=== PATIENT | female | born 1955 | race Caucasian/White ===

== ENCOUNTER 2020-03-06 09:42 | Outpatient (NON) | payer MEDICARE, SELFPAY ==
[2020-03-06 10:21] LABS: Occult Blood Positive (Negative)
== END 2020-03-06 09:43 ==
PROVIDERS: Visit Provider Internal Medicine
DX: K92.1 Melena (principal)
CPT/HCPCS: 82272; 87045; 87046; 87427

== ENCOUNTER 2020-03-18 14:18 | Outpatient (NON) | payer MEDICARE, SELFPAY ==
[2020-03-18 14:43] LABS: Add Urine Microscopic? YES; Appearance Urine Cloudy (Clear); Bilirubin Urine Negative (Negative); Blood Urine 2+ (Negative); Color Urine Yellow (Yellow); Glucose Urine UA Negative (Negative); Ketones Urine Negative (Negative); Leukocyte Esterase Ur 3+ (Negative); Nitrate Urine Positive (Negative); Protein Urine Negative (Negative); Specific Grav Ur 1.025 (1.010-1.020); Urobilinogen Urine 0.2 mg/dL (0.2-1.0); pH Urine 5.5 (5.0-8.0)
[2020-03-18 14:55] LABS: Bacteria Urine 3+ /hpf; WBC Urine >75 /hpf (0-3)
== END 2020-03-18 14:19 ==
LOC: CHSLAB 14:22
PROVIDERS: Visit Provider Internal Medicine
DX: N39.0 Urinary tract infection, site not specified (principal)
CPT/HCPCS: 81001; 87077; 87086; 87088; 87186

== ENCOUNTER 2023-07-29 22:31 | Inpatient (IN) | payer MEDICARE, MEDICAID, SELFPAY ==
--- NOTE | ~2023-07-29 | CT_ITS ---
CT of the Abdomen and Pelvis: Indication: Vomiting Technique: 2.5 mm axial scans were obtained through the abdomen and pelvis following intravenous adm inistration of 100 cc of Omnipaque 350. Dose reduction technique was used on this scan by utilizing a utomated exposure control and iterative reconstruction technique. The dose-length product (DLP) was 1 017.74 mGy-cm. Findings: Scans through the lung bases are unremarkable. The liver, spleen, pancreas, gallbladder, adrenals and kidneys are within normal limits. No evidence of aortic aneurysm. No lymphadenopathy. No bowel obstruction or bowel wall thickening. There is no evidence to suggest acute appendicitis. Images through the pelvis were performed. Urinary bladder unremarkable. No pelvic mass evident. No as cites. Impression: No significant abnormalities seen. Reviewed, dictated and finalized at location . Impression: No significant abnormalities seen.
--- NOTE | ~2023-07-29 | XR_ITS ---
EXAMINATION: XR chest 1V portable Exam Date/Time: 07/30/2023 19:00 CDT HISTORY: vomiting Comparison: 06/08/2015, report only; CT abdomen pelvis 07/30/2023. RESULT: Lines, tubes, and devices: None. Lungs and pleura: Senescent change with bibasilar atelectasis/scar. Cardiomediastinal silhouette: Stable. Other: No acute osseous or upper abdominal finding. IMPRESSION: No acute cardiopulmonary process. Reviewed, dictated and finalized at location K.
[2023-07-29 22:32] VITALS: BP 102/56; PULSE 84; RESP 12; TEMP 36.4; O2SAT 96
--- NOTE | 2023-07-30 00:05 | ED.NAVMDI ---
HPI - Nausea/Vomiting/Diarrhea General Chief complaint: Nausea/Vomiting/Diarrhea Stated complaint: vomiting Time Seen by Provider: 07/29/23 23:43 Source: patient Mode of arrival: ambulatory Limitations: no limitations History of Present Illness HPI Narrative: This is a 68-year-old female who presents to the ED via EMS from [facility] for for chief complaint of vomiting. Per EMS report the patient has had intermittent vomiting episodes for the last 3 weeks seems to be worse after eating. 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 Patient is also contracted at baseline. No change in her baseline activity level. Spoke with family on phone who was unable to be present. He is her brother and POA. He would like for us to check labs and urinalysis. Related Data Allergies Allergy/AdvReac Type Severity Reaction Status Date / Time No Known Allergies Allergy Verified 07/29/23 23:07 Review of Systems Review of Systems: All systems as dictated in HPI Exam Narrative: GENERAL: Well-appearing, well-nourished, and in no acute distress. HEAD: Normocephalic, atraumatic. EYES: PERRLA. Sunken eyelids ENT: Nares clear, no rhinorrhea or epistaxis. Mucous membranes moist. Oropharynx without tonsillar hypertrophy exudate or other lesions. NECK: Supple. No adenopathy or masses. CHEST: No respiratory distress. Clear to auscultation. No wheezes rales or rhonchi HEART: Regular rate and rhythm. No murmur heard. Normal peripheral pulses. ABDOMEN: Soft, nontender, nondistended, normal active bowel sounds. MSK: Extremities contracted. No edema. SKIN: Warm, dry, no rash. Diffuse minor scratches and two minor bruise noted to the extremities. NEURO: Unable to assess neuro exam. She does move extremities spontaneously. Responds to pain. PSYCH: Normal mood and affect. Course Vital Signs Vital signs: Vital Signs Temperature 97.6 F 07/29/23 22:32 Pulse Rate 84 07/29/23 22:32 Respiratory Rate 12 07/29/23 22:32 Blood Pressure 102/56 L 07/29/23 22:32 Pulse Oximetry 96 07/29/23 22:32 Oxygen Delivery Room Air 07/29/23 22:32 Temperature 97.6 F 07/29/23 22:32 Pulse Rate 94 07/30/23 02:23 Respiratory Rate 18 07/30/23 02:23 Blood Pressure 116/66 07/30/23 02:23 Pulse Oximetry 98 07/30/23 02:23 Oxygen Delivery Room Air 07/29/23 22:32 MDM - Nausea/Vomiting/Diarrhea MDM Narrative Medical decision making narrative: This is a 68-year-old female who presents to the ED via EMS from [facility]-way for chief complaint of intermittent vomiting for the past 3 weeks. Patient is deaf, blind and mute at baseline. Discussed with the family member goals of care and they would like her checked with lab work and urinalysis. Lab work overall is fairly unremarkable. Slightly elevated bicarb on the CMP but otherwise normal CMP. Urinalysis initial draw shows grossly overtly purulent need urine. UA results show nitrite positive, 3+ leuks, >100 wbc's. Due to the acute UTI, contact patient's family and they would like her admitted for IV rehydration and antibiotics. Discussed this plan with the hospitalist and he has agreed to admit the patient to the medical. Patient will be admitted in stable condition with normal vitals. Rocephin and fluids started here. Lab Data 07/30/23 01:20 07/30/23 01:19 Labs: Lab Results 07/30/23 07/30/23 Range/Units 01:19 01:20 WBC 6.3 (4.5-10.0) K/mm3 RBC 4.43 (4.2-5.4) M/mm3 Hgb 14.4 (12.0-15.0) g/dL Hct 45.0 (37.0-47.0) % MCV 101.6 H (80-100) fl MCH 32.5 (26-34) pg MCHC 32.0 (32-36) g/dl RDW 13.6 (11.5-14.5) % Plt Count 188 (150-375) k/mm3 MPV 11.1 H (7.4-10.4) fl Immature Gran % (Auto) 0.2 (0-0.5) % Neut % (Auto) 74.8 H (45.5-73.1) % Lymph % (Auto) 15.5 L (18.3-44.2) % [place] % (Auto) 8.6 H (2.6-8.5) % Eos % (Auto) 0.6 (0-4.4) % Baso % (Auto) 0.3 (0.2-1.2) % Lymph # (Aut
[2023-07-30 01:25] LABS: Basophils Percent Auto 0.3 % (0.2-1.2); Eosinophils Percent Auto 0.6 % (0-4.4); Hemoglobin 14.4 g/dL (12.0-15.0); Immature Granulocyte Absolute 0.01 K/mm3 (0.00-0.031); Immature Granulocyte Percent A 0.2 % (0-0.5); Lymphocytes Absolute Auto 0.97 K/mm3 (0.9-3.2); Lymphocytes Percent Auto 15.5 % (18.3-44.2); Mean Corpuscular Hemoglobin 32.5 pg (26-34); Mean Corpuscular Volume 101.6 fl (80-100); Mean Platelet Volume 11.1 fl (7.4-10.4); Monocytes Absolute Auto 0.5 K/mm3 (0.1-0.6); Monocytes Percent Auto 8.6 % (2.6-8.5); Neutrophils Absolute Auto 4.7 K/mm3 (1.3-6.7); Neutrophils Percent Auto 74.8 % (45.5-73.1); Platelet Count Result 188 k/mm3 (150-375); Red Blood Count 4.43 M/mm3 (4.2-5.4); Red Cell Distribution Width 13.6 % (11.5-14.5); White Blood Count 6.3 K/mm3 (4.5-10.0)
[2023-07-30 01:40] LABS: Alanine Aminotransferase 15 U/L (6-35); Albumin Level 4.3 g/dL (3.5-5.1); Alkaline Phosphatase 109 U/L (38-126); Anion Gap 5 mmol/L (4-12); Aspartate Amino Transferase 30 U/L (14-36); Bilirubin,Total 0.4 mg/dL (0.2-1.3); Blood Urea Nitrogen 14 mg/dL (7-17); Calcium 9.4 mg/dL (8.4-10.2); Carbon Dioxide 36 mmol/L (22-30); Chloride 100 mmol/L (98-107); Estimated CRCL calculation 68 ml/min; Estimated Glomerular Filt Rate > 60; Glucose 128 mg/dL (65-110); Potassium 3.8 mmol/L (3.4-5.0); Sodium 141 mmol/L (137-145)
[2023-07-30 01:54] LABS: Appearance Urine Turbid (Clear); Bacteria Urine 4+ /hpf; Bilirubin Urine 1+ (Negative); Blood Urine 2+ (Negative); Color Urine Dark Yellow (Yellow); Glucose Urine UA Negative (Negative); Ketones Urine Trace mg/dL (Negative); Leukocyte Esterase Ur 3+ LEU/UL (Negative); Need Manual Microscopic Reviewed; Nitrate Urine Positive (Negative); Protein Urine 3+ mg/dL (Negative); RBC Urine 51-100 /hpf (0-2); Specific Grav Ur 1.025 (1.001-1.035); Squamous Epithelial Cell Urine Many /hpf (Few); WBC Urine >100 /hpf (0-3); pH Urine 6.5 (5.0-9.0)
[2023-07-30 01:55] LABS: Add Urine Microscopic? YES
[2023-07-30 02:23] VITALS: BP 116/66; PULSE 94; RESP 18; O2SAT 98
--- NOTE | 2023-07-30 03:57 | PC.NURSE ---
per nursing care center, pt is on a pureed diet and drinks regular liquids.
--- NOTE | 2023-07-30 04:00 | PC.NURSE ---
per custodial facility pt does not ambulate. nursing staff states she gets around with a broda chair . staff states she sits in the common area in a broda chair.
[2023-07-30] MEDS: SODIUM CHLORIDE 0.9% IV 1,000 ML 125 ML IV CONT ×2 (04:10→15:40)
[2023-07-30] MEDS: PIPERACILLN/TAZ 3.375GM/NS50ML 3.375 GM/50 ML BAG IVPB (04:10)
[2023-07-30 04:13] VITALS: BP 144/78; PULSE 99; RESP 20; O2SAT 98
--- NOTE | 2023-07-30 04:36 | PC.NURSE ---
Phlebotomy contacted after multiple RN's are unable to draw lactic acid.
[2023-07-30 06:40] LABS: Lactic Acid Reflex 1.1 mmol/L (0.7-2.0)
[2023-07-30 08:00] VITALS: PULSE 86; O2SAT 96
[2023-07-30] MEDS: polyethylene glycoL 3350 17 GM POWD.PACK PO (09:39)
[2023-07-30] MEDS: LACTULOSE 20 GM/30 ML UDC 10 GM PO ×2 (09:42→17:00)
[2023-07-30] MEDS: LEVOTHYROXINE SODIUM 88 MCG TABLET PO (09:43)
[2023-07-30] MEDS: THERAPEUTIC MULTIVITAMINS/MINERALS TAB (*BKC) 1 TABLET PO (09:43)
[2023-07-30] MEDS: LORATADINE 10 MG TABLET PO (09:43)
[2023-07-30] MEDS: FAMOTIDINE 20 MG TABLET PO ×2 (09:43→17:00)
[2023-07-30] MEDS: levETIRAcetam 500 MG TABLET 1000 MG PO ×2 (09:43→16:59)
[2023-07-30] MEDS: FERROUS SULFATE 325 MG TABLET DR BY MOUTH (09:44)
[2023-07-30 10:34] LABS: Phenytoin Dilantin 37 ug/mL (10-20)
--- NOTE | 2023-07-30 12:43 | PM.IMHP ---
H&P: HPI History of Present Illness Date/Time: 07/30/23 12:43 Chief Complaint: vomiting Narrative: Patient is a 68-year-old female who presents admitted from [facility] for for chief complaint of vomiting. Per EMS report the patient has had intermittent vomiting episodes for the last 3 weeks seems to be worse after eating. 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 Patient is also contracted at baseline. No change in her baseline activity level. Discussed with her brother, TERENCE, for additional history. He is able to provide minimal additional details to her history, but did not have any additional concerns at this time. He does not know when her last seizure was, but her Dilantin level was supratherapeutic. He reports this has happened before and required dosage adjustments. She is currently comfortable, in no acute distress. She is drinking fluids and speech has been consulted for additional evaluation. CXR and CTA ordered for additional work up of her vomiting although she has not had any episodes since her admission. She is being treated for a UTI with Rocephin. Review of Systems Review of Systems: ROS unobtainable: Yes unobtainable due to medical condition and unobtainable due to mental status PMFSH Past Medical History Medical History Chronic GERD Chronic idiopathic constipation Chronic rhinitis Dependent edema Hypothyroidism (acquired) Social History Social History Smoking status: Never smoker Alcohol intake: never Substance use: never Spiritual care concerns: No Meds Home Medications and Allergies Home Medications Medication Instructions Recorded Confirmed Type Daily Multivitamin-Minerals 1 tab-cap PO DAILY 07/30/23 07/30/23 History acetaminophen 325 mg tablet 325 mg PO ONCE 07/30/23 07/30/23 History bisacodyl 10 mg rectal suppository 10 mg RECTAL DAILY PRN CONSTIPATION 07/30/23 07/30/23 History (Dulcolax (bisacodyl)) cetirizine 10 mg tablet (Zyrtec) 10 mg PO DAILY 07/30/23 07/30/23 History cholecalciferol (vitamin D3) 100 1,000 unit PO DAILY 07/30/23 07/30/23 History mcg (4,000 unit) capsule famotidine 20 mg tablet (Pepcid) 20 mg PO BID 07/30/23 07/30/23 History ferrous sulfate 325 mg (65 mg 325 mg PO DAILY 07/30/23 07/30/23 History iron) tablet lactulose 10 gram/15 mL oral syrup 10 g PO BID 07/30/23 07/30/23 History levetiracetam 1,000 mg tablet 1,000 mg PO BID 07/30/23 07/30/23 History levothyroxine 88 mcg tablet 88 mcg PO DAILY 07/30/23 07/30/23 History magnesium hydroxide 400 mg/5 mL 400 mg PO DAILY PRN CONSTIPATION 07/30/23 07/30/23 History oral suspension (Milk of Magnesia) ondansetron HCl 4 mg tablet 4 mg PO Q8H PRN Nausea And Vomiting 07/30/23 07/30/23 History phenytoin 50 mg chewable tablet 50 mg PO BID 07/30/23 07/30/23 History (Dilantin Infatabs) polyethylene glycol 3350 17 gram 17 g PO DAILY 07/30/23 07/30/23 History oral powder packet (Miralax) Allergies Allergy/AdvReac Type Severity Reaction Status Date / Time No Known Allergies Allergy Verified 07/29/23 23:07 Vital Signs Vital Signs - 24 hr 07/29/23 22:32 07/30/23 02:23 07/30/23 04:13 Temperature 97.6 F Pulse Rate 84 94 99 Respiratory Rate 12 18 20 Blood Pressure 102/56 L 116/66 144/78 H Pulse Oximetry 96 98 98 Oxygen Delivery Room Air 07/30/23 08:00 Temperature Pulse Rate 86 Respiratory Rate Blood Pressure Pulse Oximetry 96 Oxygen Delivery Room Air Exam Narrative: GENERAL: Well-appearing, well-nourished, and in no acute distress. HEAD: Normocephalic, atraumatic. EYES: PERRLA. Sunken eyelids ENT: Nares clear, no rhinorrhea or epistaxis. Mucous membranes moist. NECK: Supple. No adenopathy or masses. CHEST: No respiratory distress. Clear to auscultation. No wheezes rales or rhonchi HEART: RRR. No murmur heard. Normal peripheral pulses. ABDOMEN: Soft, nontender, nondistended, normal active bowel soun
[2023-07-30 14:00] VITALS: BP 103/59; PULSE 87; RESP 22; TEMP 36.6; O2SAT 97
[2023-07-30 14:15] VITALS: BMI 19.9
--- NOTE | 2023-07-30 15:59 | PCSTNOTE ---
Please refer to the Bedside Swallow Evaluation in the EMR. Please note, silent aspiration cannot be ruled out at bedside.
[2023-07-30 22:00] VITALS: BP 100/50; PULSE 77; RESP 16; TEMP 36.4; O2SAT 94
[2023-07-31] MEDS: SODIUM CHLORIDE 0.9% IV 1,000 ML 125 ML IV CONT ×2 (00:26→09:46)
[2023-07-31 05:53] VITALS: BP 99/63; PULSE 66; RESP 18; TEMP 36.3; O2SAT 94
[2023-07-31] MEDS: LEVOTHYROXINE SODIUM 88 MCG TABLET PO (06:28)
[2023-07-31 07:08] LABS: Basophils Percent Auto 0.8 % (0.2-1.2); Eosinophils Absolute Auto 0.1 K/mm3 (0-0.3); Eosinophils Percent Auto 1.8 % (0-4.4); Hematocrit 38.8 % (37.0-47.0); Hemoglobin 12.1 g/dL (12.0-15.0); Immature Granulocyte Absolute 0.01 K/mm3 (0.00-0.031); Immature Granulocyte Percent A 0.3 % (0-0.5); Lymphocytes Absolute Auto 1.15 K/mm3 (0.9-3.2); Lymphocytes Percent Auto 29.4 % (18.3-44.2); Mean Corpuscular HGB Conc 31.2 g/dl (32-36); Mean Corpuscular Hemoglobin 32.2 pg (26-34); Mean Corpuscular Volume 103.2 fl (80-100); Mean Platelet Volume 11.2 fl (7.4-10.4); Monocytes Absolute Auto 0.3 K/mm3 (0.1-0.6); Monocytes Percent Auto 8.2 % (2.6-8.5); Neutrophils Absolute Auto 2.3 K/mm3 (1.3-6.7); Neutrophils Percent Auto 59.5 % (45.5-73.1); Platelet Count Result 152 k/mm3 (150-375); Red Blood Count 3.76 M/mm3 (4.2-5.4); White Blood Count 3.9 K/mm3 (4.5-10.0)
[2023-07-31 07:11] LABS: Anion Gap 5 mmol/L (4-12); Blood Urea Nitrogen 5 mg/dL (7-17); Calcium 8.1 mg/dL (8.4-10.2); Carbon Dioxide 26 mmol/L (22-30); Chloride 107 mmol/L (98-107); Estimated CRCL calculation 92 ml/min; Estimated Glomerular Filt Rate > 60; Glucose 85 mg/dL (65-110); Potassium 3.6 mmol/L (3.4-5.0); Sodium 138 mmol/L (137-145)
[2023-07-31 08:06] VITALS: BP 114/62; PULSE 90; RESP 14; TEMP 37; O2SAT 97
[2023-07-31] MEDS: FERROUS SULFATE 325 MG TABLET DR BY MOUTH (10:04)
[2023-07-31] MEDS: THERAPEUTIC MULTIVITAMINS/MINERALS TAB (*BKC) 1 TABLET PO (10:04)
[2023-07-31] MEDS: LORATADINE 10 MG TABLET PO (10:04)
[2023-07-31] MEDS: FAMOTIDINE 20 MG TABLET PO ×2 (10:04→17:47)
[2023-07-31] MEDS: LACTULOSE 20 GM/30 ML UDC 10 GM PO ×2 (10:04→17:49)
[2023-07-31] MEDS: levETIRAcetam 500 MG TABLET 1000 MG PO ×2 (10:04→17:47)
--- NOTE | 2023-07-31 10:06 | PCOTNOTE ---
Pt. at baseline per nursing and hospitalist, spoke with hospitalist who is agreeable to cancelation of orders for therapy services at this time.
[2023-07-31] MEDS: ENOXAPARIN 40 MG/0.4 ML SYRINGE SUB-Q (10:33)
--- NOTE | 2023-07-31 10:43 | PCPTNOTE ---
Pt. at baseline. Per OT (who spoke with hospitalist), OK to discharge therapy orders.
[2023-07-31] MEDS: polyethylene glycoL 3350 17 GM POWD.PACK PO (11:19)
--- NOTE | 2023-07-31 12:04 | PC.NURSE ---
On 07/31/23, the student, Shyann Arenas, provided care and completed [facility] documentation on this patient. I have reviewed the student's documentation and agree with the findings.
[2023-07-31 14:06] VITALS: BP 105/62; PULSE 85; RESP 16; TEMP 36.6; O2SAT 97
--- NOTE | 2023-07-31 14:27 | PM.IMPN ---
Progress Note: A&P Assessment and Plan (1) Acute UTI: Code(s): N39.0 - Urinary tract infection, site not specified Status: Acute Assessment and Plan: UA culture prelim growing E.coli con't Rocephin will d/c IVF (2) Adult failure to thrive: Code(s): R62.7 - Adult failure to thrive Status: Chronic Assessment and Plan: will d/c IVF speech evaluation for bedside swallow - no adjustments needed to current diet order retirement resident (3) Epilepsy: Code(s): G40.909 - Epilepsy, unspecified, not intractable, without status epilepticus Status: Chronic Assessment and Plan: Continue Keppra holding phenytoin due to supratherapeutic level on admission discussed with Neuro, will hold for 2 days, recheck level and restart on 300 mg when level reaches 20 or under seizure precautions (4) Vomiting: Code(s): R11.10 - Vomiting, unspecified Status: Acute Assessment and Plan: anti-emetics available PRN CXR negative for acute process CTA negative Subjective Date/time seen: 07/31/23 14:27 Interval history: Patient resting comfortably in bed on exam, in no acute distress. Patient unable to give any ROS due to her condition. Will plan for d/c when urine sensitivities result for tailored AB therapy as patient has not had any episodes of emesis. Will plan to recheck dilantin level tomorrow and adjust dose as needed. Review of Systems Review of Systems: ROS unobtainable: Yes unobtainable due to medical condition and unobtainable due to mental status Exam Narrative: GENERAL: Well-appearing, well-nourished, and in no acute distress. HEAD: Normocephalic, atraumatic. EYES: PERRLA. Sunken eyelids ENT: Nares clear, no rhinorrhea or epistaxis. Mucous membranes moist. NECK: Supple. No adenopathy or masses. CHEST: No respiratory distress. Clear to auscultation. No wheezes rales or rhonchi HEART: RRR. No murmur heard. Normal peripheral pulses. ABDOMEN: Soft, nontender, nondistended, normal active bowel sounds. MSK: Extremities contracted. No edema. SKIN: Warm, dry, no rash. Diffuse minor scratches and two minor bruise noted to the extremities. NEURO: Unable to assess neuro exam. She does move extremities spontaneously. Responds to pain. PSYCH: Normal mood and affect. Objective Data Vital Signs Vital Signs: Vital Signs - 24 hr 07/30/23 22:00 07/31/23 05:53 07/31/23 08:06 Temperature 97.5 F L 97.4 F L 98.6 F Pulse Rate 77 66 90 Respiratory Rate 16 18 14 Blood Pressure 100/50 L 99/63 L 114/62 Pulse Oximetry 94 94 97 Oxygen Delivery 07/31/23 10:00 07/31/23 14:06 Temperature 98 F Pulse Rate 85 Respiratory Rate 16 Blood Pressure 105/62 Pulse Oximetry 97 Oxygen Delivery Room Air Intake/Output Intake/Output: Intake & Output 07/28/23 07/29/23 07/30/23 07/31/23 23:59 23:59 23:59 23:59 Intake Total 2165 1280 Balance 2165 1280 Meds/Results Medications: Active Medications Generic Name Dose Route Start Last Admin Trade Name Freq PRN Reason Stop Dose Admin Bisacodyl 10 mg 07/30/23 08:41 Bisacodyl 10 Mg Suppository RECTAL DAILY PRN CONSTIPATION Enoxaparin Sodium 40 mg 07/31/23 09:00 07/31/23 10:33 Enoxaparin 40 Mg/0.4 Ml Syringe SUB-Q 40 mg DAILY BRIA Administration Famotidine 20 mg 07/30/23 09:00 07/31/23 10:04 Famotidine 20 Mg Tablet PO 20 mg BID BRIA Administration Ferrous Sulfate 325 mg 07/30/23 09:00 07/31/23 10:04 Ferrous Sulfate [address] BY MOUTH 325 mg DAILY BRIA Administration Sodium Chloride 1,000 mls @ 125 mls/hr 07/30/23 03:05 07/31/23 09:46 Normal Saline Iv IV CONT 125 mls/hr .Q8H BRIA Administration Lactulose 10 gm 07/30/23 09:00 07/31/23 10:04 Lactulose 20 Gm/30 Ml Udc PO 10 gm BID BRIA Administration Levetiracetam 1,000 mg 07/30/23 09:00 07/31/23 10:04 Levetiracetam 500 Mg Tablet PO 1,000 mg
[2023-07-31 20:00] VITALS: BP 101/56; PULSE 85; RESP 16; TEMP 35.9; O2SAT 95
[2023-08-01] MEDS: LEVOTHYROXINE SODIUM 88 MCG TABLET PO (05:35)
[2023-08-01 06:00] VITALS: BP 98/49; PULSE 52; RESP 18; TEMP 35.9; O2SAT 93
[2023-08-01 06:32] LABS: Basophils Percent Auto 0.9 % (0.2-1.2); Eosinophils Absolute Auto 0.1 K/mm3 (0-0.3); Eosinophils Percent Auto 2.9 % (0-4.4); Hematocrit 40.1 % (37.0-47.0); Hemoglobin 12.4 g/dL (12.0-15.0); Immature Granulocyte Absolute 0.01 K/mm3 (0.00-0.031); Immature Granulocyte Percent A 0.3 % (0-0.5); Lymphocytes Absolute Auto 1.25 K/mm3 (0.9-3.2); Lymphocytes Percent Auto 36.1 % (18.3-44.2); Mean Corpuscular HGB Conc 30.9 g/dl (32-36); Mean Corpuscular Hemoglobin 32.4 pg (26-34); Mean Corpuscular Volume 104.7 fl (80-100); Monocytes Absolute Auto 0.3 K/mm3 (0.1-0.6); Monocytes Percent Auto 7.8 % (2.6-8.5); Neutrophils Absolute Auto 1.8 K/mm3 (1.3-6.7); Platelet Count Result 160 k/mm3 (150-375); Red Blood Count 3.83 M/mm3 (4.2-5.4); Red Cell Distribution Width 13.5 % (11.5-14.5); White Blood Count 3.5 K/mm3 (4.5-10.0)
[2023-08-01 06:43] LABS: Anion Gap 2 mmol/L (4-12); Blood Urea Nitrogen 8 mg/dL (7-17); Calcium 8.2 mg/dL (8.4-10.2); Carbon Dioxide 27 mmol/L (22-30); Chloride 106 mmol/L (98-107); Estimated CRCL calculation 92 ml/min; Estimated Glomerular Filt Rate > 60; Glucose 83 mg/dL (65-110); Sodium 135 mmol/L (137-145)
[2023-08-01 07:13] LABS: Phenytoin Dilantin 31 ug/mL (10-20)
[2023-08-01] MEDS: LACTULOSE 20 GM/30 ML UDC 10 GM PO ×2 (09:32→16:56)
[2023-08-01] MEDS: FERROUS SULFATE 325 MG TABLET DR BY MOUTH (09:32)
[2023-08-01] MEDS: ENOXAPARIN 40 MG/0.4 ML SYRINGE SUB-Q (09:32)
[2023-08-01] MEDS: LORATADINE 10 MG TABLET PO (09:32)
[2023-08-01] MEDS: FAMOTIDINE 20 MG TABLET PO ×2 (09:32→16:52)
[2023-08-01] MEDS: polyethylene glycoL 3350 17 GM POWD.PACK PO (09:33)
[2023-08-01] MEDS: levETIRAcetam 500 MG TABLET 1000 MG PO ×2 (09:33→16:52)
[2023-08-01] MEDS: THERAPEUTIC MULTIVITAMINS/MINERALS TAB (*BKC) 1 TABLET PO (09:33)
--- NOTE | 2023-08-01 10:00 | P.CDI_ITS ---
CDI Query Clarification Request BMI 19.9 Nutritional Diagnostic Statement Moderate malnutrition related to chronic loss of appetite as evidenced by poor intake < 75% meals > 1 month; moderate muscle wasting (temporalis, clavicle, shoulder, calf, interosseous). Nutrition intervention: Oral nutrition supplements: Ensure compact TID for additional 220 kcal and 9 g protein each. Please refer to the comprehensive nutrition assessment for further information. Please clarify the severity of protein calorie malnutrition if known: * Mild * Moderate * Severe * Other/Unspecified <Marci Ortiz RN - Last Filed: 08/01/23 10:07> Clarified Diagnosis Clarified Diagnosis: Moderate malnutrition related to chronic loss of appetite as evidenced by poor intake < 75% meals > 1 month; moderate muscle wasting (temporalis, clavicle, shoulder, calf, interosseous). Nutrition intervention: Oral nutrition supplements: Ensure compact TID for additional 220 kcal and 9 g protein each. <Marci Erwin APRN - Last Filed: 08/01/23 12:55>
--- NOTE | 2023-08-01 12:55 | PM.DS ---
DS: Admitting Diagnosis Discharge Date 08/01/2023 Admitting Diagnosis UTI/vomiting/Failure to thrive/electrolyte DS: Discharge Diagnosis Discharge Diagnosis (1) Acute UTI: Code(s): N39.0 - Urinary tract infection, site not specified Status: Acute Assessment and Plan: UA culture prelim growing E.coli con't Rocephin will d/c IVF (2) Adult failure to thrive: Code(s): R62.7 - Adult failure to thrive Status: Chronic Assessment and Plan: will d/c IVF speech evaluation for bedside swallow - no adjustments needed to current diet order senior living resident (3) Epilepsy: Qualifiers: Epilepsy type: unspecified Intractability: not intractable Status epilepticus: without status epilepticus Qualified Code(s): G40.909 - Epilepsy, unspecified, not intractable, without status epilepticus Code(s): G40.909 - Epilepsy, unspecified, not intractable, without status epilepticus Status: Chronic Assessment and Plan: Continue Keppra holding phenytoin due to supratherapeutic level on admission discussed with Neuro, will hold for 2 days, recheck level and restart on 300 mg when level reaches 20 or under seizure precautions (4) Vomiting: Qualifiers: Nausea presence: without nausea Vomiting type: unspecified Qualified Code(s): R11.11 - Vomiting without nausea Code(s): R11.10 - Vomiting, unspecified Status: Acute Assessment and Plan: anti-emetics available PRN CXR negative for acute process CTA negative Plan Disposition: Patient discharged to SNF via ambulance will need follow-up Dilantin levels daily once under 20 may resume her phenytoin DS: Summary Hospital Course Reason for hospitalization: UTI/vomiting/Failure to thrive/electrolyte Hospital Course: Admission: Chief Complaint: vomiting Narrative: Patient is a 68-year-old female who presents admitted from [facility] for for chief complaint of vomiting.? Per EMS report the patient has had intermittent vomiting episodes for the last 3 weeks seems to be worse after eating.? 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 Patient is also contracted at baseline.? No change in her baseline activity level. Discussed with her brother, TERENCE, for additional history. He is able to provide minimal additional details to her history, but did not have any additional concerns at this time. He does not know when her last seizure was, but her Dilantin level was supratherapeutic. He reports this has happened before and required dosage adjustments. She is currently comfortable, in no acute distress. She is drinking fluids and speech has been consulted for additional evaluation. CXR and CTA ordered for additional work up of her vomiting although she has not had any episodes since her admission. She is being treated for a UTI with Rocephin. 07/30:Medical Record Patient resting comfortably in bed on exam, in no acute distress. Patient unable to give any ROS due to her condition. Will plan for d/c when urine sensitivities result for tailored AB therapy as patient has not had any episodes of emesis. Will plan to recheck dilantin level tomorrow and adjust dose as needed. 07/31: Discharged Patient had no further N/V, continued to hold phentyion due to elevated Dilantin levels. Patient tolerating oral intake and UA grew ECOLI. Patient was discharged back [facility] will need to resume phenytoin once Dilantin levels are at a therapeutic level. Status at Discharge Overall status at discharge: patient is back to baseline Time Spent with Patient Time attestation: Total time spent providing and/or coordinating discharge services: Time spent: Less than 30 minutes Exam Narrative: GENERAL: Well-appearing, well-nourished, and in no acute distress. Mute, Deaf, nonverbal HEAD: Normocephalic, atraumatic. EYES: PERRLA. Sunken eyelids ENT: Nares clear, no rhinorrhea or epistaxis. Mucous
[2023-08-01 14:00] VITALS: BP 113/65; PULSE 85; RESP 18; TEMP 36.4; O2SAT 93
[2023-08-01] MEDS: NITROFURANTOIN MONOHYD MACROCR 100 MG CAP PO (14:01)
[2023-08-01 16:00] LABS: SARS-CoV-2 RNA PCR Negative (Negative)
== END 2023-08-01 17:35 | DRG 690 ==
LOC: ANHED 07-30 04:10 → ANH3MEDSUR 07-30 04:58
PROVIDERS: Nurse Practitioner; Admitting Provider Internal Medicine; Emergency Provider Physician Assistant; Visit Provider Nurse Practitioner Family
DX: N39.0 Urinary tract infection, site not specified (principal); E44.0 Moderate protein-calorie malnutrition; B96.20 Unspecified Escherichia coli [E. coli] as the cause of diseases classified elsewhere; Z68.20 Body mass index [BMI] 20.0-20.9, adult; R11.10 Vomiting, unspecified; R62.7 Adult failure to thrive; G40.909 Epilepsy, unspecified, not intractable, without status epilepticus; Z20.822 Contact with and (suspected) exposure to COVID-19; K21.9 Gastro-esophageal reflux disease without esophagitis; E03.9 Hypothyroidism, unspecified; H91.3 Deaf nonspeaking, not elsewhere classified; H54.8 Legal blindness, as defined in USA
CPT/HCPCS: 36415; 71045; 74174; 80048; 80076; 80185; 81001; 83605; 85025; 87077; 87086; 87088; 87186; 87635; 92610; 96365; 96367; 99285; A9270; J0696; J1650; J2543; J7030; Q9967